=== PATIENT | female | born 1985 | race Caucasian/White ===

== ENCOUNTER 2016-06-14 19:14 | Emergency (ER) | payer OTHER ==
--- NOTE | 2016-06-14 20:30 | ED ORDER SUMMARY ---
..... Patient: LEAH TILLEY OrderSheet [facility] VisitID: [id number] [address] [place] [address] 30y, F Registration Date/Time: 06/14/2016 ORDER SHEET Weight: 68.0 kg (stated) Allergies: Amoxicillin, Clindamycin GENERAL ORDERS: Urine Drug Screen Urgent (20:03 06/14/2016 Quan Benitez) (Ack 20:13 IJurca ER Tech1) (Sent 20:13 IJurca ER Tech1) (20:23 Erwin R.N.) MEDICATION ORDERS: Vistaril PO 100 mg (NOW) (19:34 06/14/2016 Quan RoyACarlito-Ashley) (19:48 Benson R.N.) IV FLUIDS: ORDER SHEET NOTES: [Electronically signed by Katerin Pagan R.N. (20:42 06/14/2016)] [Electronically signed by Guerline Crandall P.A.-C (21:07 06/14/2016)] [Electronically locked/signed by Katerin Pagan R.N. (20:42 06/14/2016)]
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
--- NOTE | 2016-06-14 20:30 | ED ORDER SUMMARY ---
..... Patient: LEAH TILLEY OrderSheet [facility] VisitID: [id number] [address] [place] [address] 30y, F Registration Date/Time: 06/14/2016 ORDER SHEET Weight: 68.0 kg (stated) Allergies: Amoxicillin, Clindamycin GENERAL ORDERS: Urine Drug Screen Urgent (20:03 06/14/2016 Quan Benitez) (Ack 20:13 IJurca ER Tech1) (Sent 20:13 IJurca ER Tech1) (20:23 Erwin R.N.) MEDICATION ORDERS: Vistaril PO 100 mg (NOW) (19:34 06/14/2016 Quan RoyACarlito-Ashley) (19:48 Benson R.N.) IV FLUIDS: ORDER SHEET NOTES: [Electronically signed by Katerin Pagan R.N. (20:42 06/14/2016)] [Electronically signed by Guerline Crandall P.A.-C (21:07 06/14/2016)] [Electronically locked/signed by Katerin Pagan R.N. (20:42 06/14/2016)]
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
--- NOTE | 2016-06-14 21:08 | ED MAR SUMMARY ---
..... Medication Administration Record [facility] [address] [place] [address] Patient: LEAH TILLEY Visit ID: [id number] 30y, F Weight: 68.0 kg Height/Length: 64 in BMI: 25.8 ALLERGIES: Amoxicillin, Clindamycin Given 19:38 06/14/2016 Katerin Pagan R.N. Medication Administered: VISTARIL [PO] (HYDROXYZINE PAMOATE), Dose: 100 mg PO. Medication Ordered: Vistaril PO 100 mg (NOW).
--- NOTE | 2016-06-14 21:08 | ED MED RECONCILIATION SUMMARY ---
Patient: LEAH TILLEY Medication Reconciliation Report [facility] VisitID: [id number] [address] [place] [address] 30y, F Registration Date/Time: 06/14/2016 Weight: 68.0 kg Height/Length: 64 in. BMI: 25.8 ALLERGIES: Amoxicillin, Clindamycin The patient's Home Medications are listed below: THE FOLLOWING MEDICATIONS NEED TO BE RECONCILED: Albuterol Sulfate Inhalation Albuterol Sulfate Inhalation Albuterol Sulfate Inhalation Albuterol Sulfate Inhalation The source(s) of the original Home Medication information: patient The following Medications were given to the patient in the Emergency Department: Vistaril [PO] PO 100 mg, administered: 06/14/2016 7:38:00 PM The following Medications were prescribed to the patient: Vistaril 50 mg: Take 1 orally every 6 hours as needed for anxiety. Dispense twenty (20). No refills. Substitution is permissible. -- Guerline Crandall, PCarlitoARodolfoC
--- NOTE | 2016-06-14 21:08 | ED MAR SUMMARY ---
..... Medication Administration Record [facility] [address] [place] [address] Patient: LEAH TILLEY Visit ID: [id number] 30y, F Weight: 68.0 kg Height/Length: 64 in BMI: 25.8 ALLERGIES: Amoxicillin, Clindamycin Given 19:38 06/14/2016 Katerin Pagan R.N. Medication Administered: VISTARIL [PO] (HYDROXYZINE PAMOATE), Dose: 100 mg PO. Medication Ordered: Vistaril PO 100 mg (NOW).
--- NOTE | 2016-06-14 21:08 | ED DISCHARGE INSTRUCTIONS ---
Patient: LEAH TILLEY General Instructions [facility] VisitID: [id number] [address] [place] [address] 30y, F Registration Date/Time: 06/14/2016 Anxiety reaction. INSTRUCTIONS Stay with responsible adult family member (or other responsible adult). Rest. Do not smoke. No alcohol. Prescription Medications: Vistaril 50 mg: Take 1 orally every 6 hours as needed for anxiety. Dispense twenty (20). No refills. Substitution is permissible. Follow-up: Follow up with your doctor in three days. ADDITIONAL INFORMATION Panic Attack A panic attack is an extreme fear reaction that comes on for no apparent reason. Symptoms may include pounding or racing heartbeat, shortness of breath, dizziness, weakness and sweating. There is usually a fear that something terrible will happen or that you may . The attack may last a few minutes up to a few hours. Between attacks things will seem quite normal. This condition has a psychological cause and can be treated with the help of a therapist or psychiatrist. Medication is often used and can be very helpful for this problem. Home Care: Try to identify the sources of stress in your life. It may not be obvious! These may include: Daily hassles of life which pile up (traffic jams, missed appointments, car troubles, etc.). Major life changes, both good (new baby, job promotion) and bad (loss of job, loss of loved one). Overload: feeling that you have too many responsibilities and can't take care of everything at once. Helplessness: feeling like your problems are too much for you to handle. Notice how your body reacts to stress. Learn to listen to your body signals so that you can take action before the stress becomes severe. When possible, AVOID or REDUCE THE CAUSE OF STRESS. Avoid hassles, limit the amount of change that is happening in your life at one time or take a break when you feel overloaded. Unfortunately, many stressful situations cannot be avoided. Therefore, it is necessary to LEARN HOW TO MANAGE STRESS better. There are many proven methods that work and will reduce your anxiety. These include simple things like exercise, good nutrition and adequate rest. Also, there are certain techniques that are helpful: relaxation and breathing exercises, visualization, biofeedback, meditation or simply taking some time-out to clear your mind. For more information about this, consult your doctor or go to a local bookstore and review the many books and tapes available on this subject. Follow Up with your doctor or a therapist as advised. Get Prompt Medical Attention if any of the following occur: Worsening of your symptoms to the point of feeling [id number] A change in the type of pain: if it feels different, becomes more severe, lasts longer, or begins to spread into your shoulder, arm, neck, jaw or back Shortness of breath or increased pain with breathing Increasing feeling of weakness or dizziness Fainting Cough with dark colored sputum (phlegm) or blood Fever of 100.4F (38C) or higher, or as directed by your healthcare provider Swelling, pain or redness in one leg Hyperventilation Syndrome Hyperventilation Syndrome is a condition in which you lose control of your breathing. You may find yourself breathing too fast and/or too deep. This can be triggered by pain, anxiety and emotional stress. If hyperventilation continues for more than a few minutes, it can lead to a number of frightening symptoms, such as: Numbness and tingling of the hands, feet and face Clenching of the fingers or toes Dizziness Feeling like you cannot get enough air Chest pains Fainting or feeling like you are going to faint Once these symptoms begin, it is often hard to stop them because they lead to a cycle of more anxiety and more hyperventilation. It is important to understand that this is not a life-threatening condition and it will pass once you are able to relax. Relaxation and stress management methods can be learned and practiced in advance. These can help in the event of a future attack. Home Care: 1) Rest today until feeling back to normal. 2) If symptoms return: Sit or lie down. Remember that what is happening to you is temporary and will pass. Use the relaxation methods you have learned. It is no longer recommended to breathe into a paper bag. Follow Up with your doctor or as directed by our staff if symptoms recur. Get Prompt Medical Attention if any of the following occur: Increasing shortness of breath Fever of 100.0 F (38 C) or higher, or as directed by your healthcare provider Coughing up blood Chest pain that is made worse with each breath Redness, pain or swelling of the leg Ringing in your ears, Severe headache Weakness or fainting You have been given the following additional information: Panic Attack Hyperventilation Syndrome Stay with responsible adult family member (or other responsible adult). Rest. (Electronically signed by Guerline Crandall P.A.-C 06/14/2016 21:07)
--- NOTE | 2016-06-14 21:08 | ED MED RECONCILIATION SUMMARY ---
Patient: LEAH TILLEY Medication Reconciliation Report [facility] VisitID: [id number] [address] [place] [address] 30y, F Registration Date/Time: 06/14/2016 Weight: 68.0 kg Height/Length: 64 in. BMI: 25.8 ALLERGIES: Amoxicillin, Clindamycin The patient's Home Medications are listed below: THE FOLLOWING MEDICATIONS NEED TO BE RECONCILED: Albuterol Sulfate Inhalation Albuterol Sulfate Inhalation Albuterol Sulfate Inhalation Albuterol Sulfate Inhalation The source(s) of the original Home Medication information: patient The following Medications were given to the patient in the Emergency Department: Vistaril [PO] PO 100 mg, administered: 06/14/2016 7:38:00 PM The following Medications were prescribed to the patient: Vistaril 50 mg: Take 1 orally every 6 hours as needed for anxiety. Dispense twenty (20). No refills. Substitution is permissible. -- Guerline Crandall, PCarlitoARodolfoC
== END 2016-06-14 20:35 | disposition home or self-care (01) ==
LOC: ED SRH 19:14
DX: F41.1 Generalized anxiety disorder (principal); F17.200 Nicotine dependence, unspecified, uncomplicated; J45.909 Unspecified asthma, uncomplicated; Z88.1 Allergy status to other antibiotic agents; Z88.0 Allergy status to penicillin
CPT/HCPCS: 92760; 92761; 92762; 92763; 92764; 92765; 92766; 92767

== ENCOUNTER 2016-06-15 18:45 | Emergency (ER) | payer OTHER ==
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
--- NOTE | 2016-06-15 20:45 | ED ORDER SUMMARY ---
..... Patient: LEAH TILLEY OrderSheet [facility] VisitID: [id number] [address] [place] [address] 30y, F Registration Date/Time: 06/15/2016 ORDER SHEET Weight: 68 kg Allergies: Amoxicillin, Clindamycin GENERAL ORDERS: Breathalyzer (19:04 06/15/2016 Quan Benitez) (19:10 LMuller) MEDICATION ORDERS: IV FLUIDS: ORDER SHEET NOTES: [Electronically signed by Fariha Goode (20:50 06/15/2016)] [Electronically signed by Guerline Crandall P.A.-C (21:12 06/15/2016)] [Electronically locked/signed by Fariha Goode (20:50 06/15/2016)]
--- NOTE | 2016-06-15 20:45 | ED ORDER SUMMARY ---
..... Patient: LEAH TILLEY OrderSheet [facility] VisitID: [id number] [address] [place] [address] 30y, F Registration Date/Time: 06/15/2016 ORDER SHEET Weight: 68 kg Allergies: Amoxicillin, Clindamycin GENERAL ORDERS: Breathalyzer (19:04 06/15/2016 Quan Benitez) (19:10 LMuller) MEDICATION ORDERS: IV FLUIDS: ORDER SHEET NOTES: [Electronically signed by Fariha Goode (20:50 06/15/2016)] [Electronically signed by Guerline Crandall P.A.-C (21:12 06/15/2016)] [Electronically locked/signed by Fariha Goode (20:50 06/15/2016)]
--- NOTE | 2016-06-15 21:12 | ED DISCHARGE INSTRUCTIONS ---
Patient: LEAH TILLEY General Instructions [facility] VisitID: [id number] [address] [place] [address] 30y, F Registration Date/Time: 06/15/2016 Mild major depressive disorder. Panic attack Paranoid. INSTRUCTIONS ([address] [place] [address] [facility]). Follow-up: Follow up with your doctor. Call for the next available appointment. ADDITIONAL INFORMATION Panic Attack A panic attack is an extreme fear reaction that comes on for no apparent reason. Symptoms may include pounding or racing heartbeat, shortness of breath, dizziness, weakness and sweating. There is usually a fear that something terrible will happen or that you may . The attack may last a few minutes up to a few hours. Between attacks things will seem quite normal. This condition has a psychological cause and can be treated with the help of a therapist or psychiatrist. Medication is often used and can be very helpful for this problem. Home Care: Try to identify the sources of stress in your life. It may not be obvious! These may include: Daily hassles of life which pile up (traffic jams, missed appointments, car troubles, etc.). Major life changes, both good (new baby, job promotion) and bad (loss of job, loss of loved one). Overload: feeling that you have too many responsibilities and can't take care of everything at once. Helplessness: feeling like your problems are too much for you to handle. Notice how your body reacts to stress. Learn to listen to your body signals so that you can take action before the stress becomes severe. When possible, AVOID or REDUCE THE CAUSE OF STRESS. Avoid hassles, limit the amount of change that is happening in your life at one time or take a break when you feel overloaded. Unfortunately, many stressful situations cannot be avoided. Therefore, it is necessary to LEARN HOW TO MANAGE STRESS better. There are many proven methods that work and will reduce your anxiety. These include simple things like exercise, good nutrition and adequate rest. Also, there are certain techniques that are helpful: relaxation and breathing exercises, visualization, biofeedback, meditation or simply taking some time-out to clear your mind. For more information about this, consult your doctor or go to a local bookstore and review the many books and tapes available on this subject. Follow Up with your doctor or a therapist as advised. Get Prompt Medical Attention if any of the following occur: Worsening of your symptoms to the point of feeling [id number] A change in the type of pain: if it feels different, becomes more severe, lasts longer, or begins to spread into your shoulder, arm, neck, jaw or back Shortness of breath or increased pain with breathing Increasing feeling of weakness or dizziness Fainting Cough with dark colored sputum (phlegm) or blood Fever of 100.4F (38C) or higher, or as directed by your healthcare provider Swelling, pain or redness in one leg Hyperventilation Syndrome Hyperventilation Syndrome is a condition in which you lose control of your breathing. You may find yourself breathing too fast and/or too deep. This can be triggered by pain, anxiety and emotional stress. If hyperventilation continues for more than a few minutes, it can lead to a number of frightening symptoms, such as: Numbness and tingling of the hands, feet and face Clenching of the fingers or toes Dizziness Feeling like you cannot get enough air Chest pains Fainting or feeling like you are going to faint Once these symptoms begin, it is often hard to stop them because they lead to a cycle of more anxiety and more hyperventilation. It is important to understand that this is not a life-threatening condition and it will pass once you are able to relax. Relaxation and stress management methods can be learned and practiced in advance. These can help in the event of a future attack. Home Care: 1) Rest today until feeling back to normal. 2) If symptoms return: Sit or lie down. Remember that what is happening to you is temporary and will pass. Use the relaxation methods you have learned. It is no longer recommended to breathe into a paper bag. Follow Up with your doctor or as directed by our staff if symptoms recur. Get Prompt Medical Attention if any of the following occur: Increasing shortness of breath Fever of 100.0 F (38 C) or higher, or as directed by your healthcare provider Coughing up blood Chest pain that is made worse with each breath Redness, pain or swelling of the leg Ringing in your ears, Severe headache Weakness or fainting You have been given the following additional information: Panic Attack Hyperventilation Syndrome (Electronically signed by Guerline Crandall P.A.-C 06/15/2016 21:12)
--- NOTE | 2016-06-15 21:12 | ED DISCHARGE INSTRUCTIONS ---
Patient: LEAH TILLEY General Instructions [facility] VisitID: [id number] [address] [place] [address] 30y, F Registration Date/Time: 06/15/2016 Mild major depressive disorder. Panic attack Paranoid. INSTRUCTIONS ([address] [place] [address] [facility]). Follow-up: Follow up with your doctor. Call for the next available appointment. ADDITIONAL INFORMATION Panic Attack A panic attack is an extreme fear reaction that comes on for no apparent reason. Symptoms may include pounding or racing heartbeat, shortness of breath, dizziness, weakness and sweating. There is usually a fear that something terrible will happen or that you may . The attack may last a few minutes up to a few hours. Between attacks things will seem quite normal. This condition has a psychological cause and can be treated with the help of a therapist or psychiatrist. Medication is often used and can be very helpful for this problem. Home Care: Try to identify the sources of stress in your life. It may not be obvious! These may include: Daily hassles of life which pile up (traffic jams, missed appointments, car troubles, etc.). Major life changes, both good (new baby, job promotion) and bad (loss of job, loss of loved one). Overload: feeling that you have too many responsibilities and can't take care of everything at once. Helplessness: feeling like your problems are too much for you to handle. Notice how your body reacts to stress. Learn to listen to your body signals so that you can take action before the stress becomes severe. When possible, AVOID or REDUCE THE CAUSE OF STRESS. Avoid hassles, limit the amount of change that is happening in your life at one time or take a break when you feel overloaded. Unfortunately, many stressful situations cannot be avoided. Therefore, it is necessary to LEARN HOW TO MANAGE STRESS better. There are many proven methods that work and will reduce your anxiety. These include simple things like exercise, good nutrition and adequate rest. Also, there are certain techniques that are helpful: relaxation and breathing exercises, visualization, biofeedback, meditation or simply taking some time-out to clear your mind. For more information about this, consult your doctor or go to a local bookstore and review the many books and tapes available on this subject. Follow Up with your doctor or a therapist as advised. Get Prompt Medical Attention if any of the following occur: Worsening of your symptoms to the point of feeling [id number] A change in the type of pain: if it feels different, becomes more severe, lasts longer, or begins to spread into your shoulder, arm, neck, jaw or back Shortness of breath or increased pain with breathing Increasing feeling of weakness or dizziness Fainting Cough with dark colored sputum (phlegm) or blood Fever of 100.4F (38C) or higher, or as directed by your healthcare provider Swelling, pain or redness in one leg Hyperventilation Syndrome Hyperventilation Syndrome is a condition in which you lose control of your breathing. You may find yourself breathing too fast and/or too deep. This can be triggered by pain, anxiety and emotional stress. If hyperventilation continues for more than a few minutes, it can lead to a number of frightening symptoms, such as: Numbness and tingling of the hands, feet and face Clenching of the fingers or toes Dizziness Feeling like you cannot get enough air Chest pains Fainting or feeling like you are going to faint Once these symptoms begin, it is often hard to stop them because they lead to a cycle of more anxiety and more hyperventilation. It is important to understand that this is not a life-threatening condition and it will pass once you are able to relax. Relaxation and stress management methods can be learned and practiced in advance. These can help in the event of a future attack. Home Care: 1) Rest today until feeling back to normal. 2) If symptoms return: Sit or lie down. Remember that what is happening to you is temporary and will pass. Use the relaxation methods you have learned. It is no longer recommended to breathe into a paper bag. Follow Up with your doctor or as directed by our staff if symptoms recur. Get Prompt Medical Attention if any of the following occur: Increasing shortness of breath Fever of 100.0 F (38 C) or higher, or as directed by your healthcare provider Coughing up blood Chest pain that is made worse with each breath Redness, pain or swelling of the leg Ringing in your ears, Severe headache Weakness or fainting You have been given the following additional information: Panic Attack Hyperventilation Syndrome (Electronically signed by Guerline Crandall P.A.-C 06/15/2016 21:12)
--- NOTE | 2016-06-15 21:12 | ED MAR SUMMARY ---
..... Medication Administration Record [facility] [address] [id number] Patient: LEAH TILLEY Visit ID: [id number] 30y, F Weight: 68.0 kg Height/Length: 62 in BMI: 27.4 ALLERGIES: Amoxicillin, Clindamycin
--- NOTE | 2016-06-15 21:12 | ED MAR SUMMARY ---
..... Medication Administration Record [facility] [address] [place], [place] [id number] Patient: LEAH TILLEY Visit ID: [id number] 30y, F Weight: 68.0 kg Height/Length: 62 in BMI: 27.4 ALLERGIES: Amoxicillin, Clindamycin
--- NOTE | 2016-06-15 21:12 | ED MED RECONCILIATION SUMMARY ---
Patient: LEAH TILLEY Medication Reconciliation Report [facility] VisitID: [id number] [address] [place] [place] [address] 30y, F Registration Date/Time: 06/15/2016 Weight: 68 kg Height/Length: 62 in. BMI: 27.4 ALLERGIES: Amoxicillin, Clindamycin The patient's Home Medications are listed below: THE FOLLOWING MEDICATIONS NEED TO BE RECONCILED: Albuterol Sulfate Inhalation The source(s) of the original Home Medication information: Not obtained. The following Medications were given to the patient in the Emergency Department: None. The following Medications were prescribed to the patient: None.
--- NOTE | 2016-06-15 21:12 | ED MED RECONCILIATION SUMMARY ---
Patient: LEAH TILLEY Medication Reconciliation Report [facility] VisitID: [id number] [address] [place] [address] 30y, F Registration Date/Time: 06/15/2016 Weight: 68 kg Height/Length: 62 in. BMI: 27.4 ALLERGIES: Amoxicillin, Clindamycin The patient's Home Medications are listed below: THE FOLLOWING MEDICATIONS NEED TO BE RECONCILED: Albuterol Sulfate Inhalation The source(s) of the original Home Medication information: Not obtained. The following Medications were given to the patient in the Emergency Department: None. The following Medications were prescribed to the patient: None.
== END 2016-06-15 20:50 | disposition home or self-care (01) ==
LOC: ED SRH 18:45
DX: F22 Delusional disorders (principal); F32.9 Major depressive disorder, single episode, unspecified; F41.1 Generalized anxiety disorder; Z88.1 Allergy status to other antibiotic agents

== ENCOUNTER 2016-07-12 15:18 | Emergency (ER) | payer OTHER ==
--- NOTE | 2016-07-12 15:24 | ED CLINICAL REPORT ---
Clinical Report - Physicians/Mid Levels [facility] [address] [place] [address] 07/12/2016 15:18 Patient: LEAH TILLEY Time Seen: 1523. Arrived- Police present. Historian- patient and police. HISTORY OF PRESENT ILLNESS Chief Complaint: Clear to book, has been drinking. This started today and is still present. At its maximum, severity described as moderate. When seen in the E.D., severity described as moderate. Modifying factors- (Pt herself has no complaints, other than that she doesn't like the feeling of the handcuffs.). Not worsened by anything. Not relieved by anything. No current or associated symptoms. Similar symptoms previously: Recent medical care: Not recently seen/assessed. REVIEW OF SYSTEMS No fever, sore throat, sinus drainage, nasal congestion or cough. No difficulty breathing, chest pain, abdominal pain, nausea or vomiting. No diarrhea, black stools, bloody stools, chills or difficulty with urination. No skin rash, back pain, calf pain, headache or blackouts. No double vision. No difficulty with ambulation. All systems otherwise negative, except as recorded above. PAST HISTORY Problems: Panic Attack. Suicidal Ideation. Depression. Back Pain. Substance Abuse. PTSD. Fibromyalgia. Tetanus Status. Dental Caries. Anxiety Reaction. Bipolar Disorder. Hyperventilation. Immunizations. LNMP - Last Normal Menstrual Period. Asthma. Additional Surgeries: Adenoidectomy. Tonsillectomy. Medications: Albuterol Sulfate Inhalation. Allergies: Amoxicillin. Clindamycin. SOCIAL HISTORY Smoker- current status unknown. Alcohol use. ADDITIONAL NOTES The nursing notes have been reviewed. PHYSICAL EXAM Vital Signs: 07/12/2016 17:20 BP: 163/120. HR: 104. RR: 20. O2 saturation: 100%. Temp: 96.1 F. Pain level now: 5/10. Have been reviewed. Appearance: Alert. No acute distress. (Pt is belligerent and yelling obscenities.). Eyes: Pupils equal, round and reactive to light. Eyes normal inspection. ENT: Nose normal. Neck: Normal inspection. CVS: Normal heart rate and rhythm. Heart sounds normal. Pulses normal. Respiratory: No respiratory distress. Breath sounds normal. Abdomen: No visible injury. Soft and nontender. Back: Normal inspection. Skin: Skin warm and dry. Normal skin color. No rash. Normal skin turgor. Extremities: Extremities exhibit normal ROM. No lower extremity edema. Neuro: No motor deficit. No sensory deficit. (Pt is alert and verbal.). LABS, X-RAYS, AND EKG Pulse Oximetry: 07/12/2016 17:20 O2 saturation: 100%. (FIO2 - room air). Interpretation: normal. PROGRESS AND PROCEDURES Course of Care: No acute or emergent issues were identified. Pt was cleared for booking. Patient counseled in person regarding the patient's stable condition, diagnosis and need for follow-up. Concerns were addressed. Old medical records reviewed. Disposition: Discharged. Condition: stable. CLINICAL IMPRESSION Normal exam while in the ED. INSTRUCTIONS (CLEAR TO BOOK.). Warnings: GENERAL WARNINGS: Return or contact your physician immediately if your condition worsens or changes unexpectedly, if not improving as expected, or if other problems arise. Follow-up: Follow up with your doctor as needed. Understanding of the discharge instructions verbalized by patient. (Electronically signed by Karlie Gallagher MD 07/14/2016 17:31)
--- NOTE | 2016-07-12 15:24 | ED CLINICAL REPORT ---
Clinical Report - Physicians/Mid Levels [facility] [address] [place] [address] 07/12/2016 15:18 Patient: LEAH TILLEY Time Seen: 1523. Arrived- Police present. Historian- patient and police. HISTORY OF PRESENT ILLNESS Chief Complaint: Clear to book, has been drinking. This started today and is still present. At its maximum, severity described as moderate. When seen in the E.D., severity described as moderate. Modifying factors- (Pt herself has no complaints, other than that she doesn't like the feeling of the handcuffs.). Not worsened by anything. Not relieved by anything. No current or associated symptoms. Similar symptoms previously: Recent medical care: Not recently seen/assessed. REVIEW OF SYSTEMS No fever, sore throat, sinus drainage, nasal congestion or cough. No difficulty breathing, chest pain, abdominal pain, nausea or vomiting. No diarrhea, black stools, bloody stools, chills or difficulty with urination. No skin rash, back pain, calf pain, headache or blackouts. No double vision. No difficulty with ambulation. All systems otherwise negative, except as recorded above. PAST HISTORY Problems: Panic Attack. Suicidal Ideation. Depression. Back Pain. Substance Abuse. PTSD. Fibromyalgia. Tetanus Status. Dental Caries. Anxiety Reaction. Bipolar Disorder. Hyperventilation. Immunizations. LNMP - Last Normal Menstrual Period. Asthma. Additional Surgeries: Adenoidectomy. Tonsillectomy. Medications: Albuterol Sulfate Inhalation. Allergies: Amoxicillin. Clindamycin. SOCIAL HISTORY Smoker- current status unknown. Alcohol use. ADDITIONAL NOTES The nursing notes have been reviewed. PHYSICAL EXAM Vital Signs: 07/12/2016 17:20 BP: 163/120. HR: 104. RR: 20. O2 saturation: 100%. Temp: 96.1 F. Pain level now: 5/10. Have been reviewed. Appearance: Alert. No acute distress. (Pt is belligerent and yelling obscenities.). Eyes: Pupils equal, round and reactive to light. Eyes normal inspection. ENT: Nose normal. Neck: Normal inspection. CVS: Normal heart rate and rhythm. Heart sounds normal. Pulses normal. Respiratory: No respiratory distress. Breath sounds normal. Abdomen: No visible injury. Soft and nontender. Back: Normal inspection. Skin: Skin warm and dry. Normal skin color. No rash. Normal skin turgor. Extremities: Extremities exhibit normal ROM. No lower extremity edema. Neuro: No motor deficit. No sensory deficit. (Pt is alert and verbal.). LABS, X-RAYS, AND EKG Pulse Oximetry: 07/12/2016 17:20 O2 saturation: 100%. (FIO2 - room air). Interpretation: normal. PROGRESS AND PROCEDURES Course of Care: No acute or emergent issues were identified. Pt was cleared for booking. Patient counseled in person regarding the patient's stable condition, diagnosis and need for follow-up. Concerns were addressed. Old medical records reviewed. Disposition: Discharged. Condition: stable. CLINICAL IMPRESSION Normal exam while in the ED. INSTRUCTIONS (CLEAR TO BOOK.). Warnings: GENERAL WARNINGS: Return or contact your physician immediately if your condition worsens or changes unexpectedly, if not improving as expected, or if other problems arise. Follow-up: Follow up with your doctor as needed. Understanding of the discharge instructions verbalized by patient. (Electronically signed by Karlie Gallagher MD 07/14/2016 17:31)
--- NOTE | 2016-07-14 17:31 | ED DISCHARGE INSTRUCTIONS ---
Patient: LEAH TILLEY General Instructions [facility] VisitID: [id number] [address] [place] [address] 30y, F Registration Date/Time: 07/12/2016 Normal exam while in the ED. INSTRUCTIONS (CLEAR TO BOOK.). Warnings: GENERAL WARNINGS: Return or contact your physician immediately if your condition worsens or changes unexpectedly, if not improving as expected, or if other problems arise. Follow-up: Follow up with your doctor as needed. Understanding of the discharge instructions verbalized by patient. (Electronically signed by Karlie Gallagher MD 07/14/2016 17:31)
--- NOTE | 2016-07-14 17:31 | ED MED RECONCILIATION SUMMARY ---
Patient: LEAH TILLEY Medication Reconciliation Report [facility] VisitID: [id number] [address] [place] [address] 30y, F Registration Date/Time: 07/12/2016 Weight: 68 kg Height/Length: 62 in. BMI: 27.4 ALLERGIES: Amoxicillin, Clindamycin The patient's Home Medications are listed below: THE FOLLOWING MEDICATIONS NEED TO BE RECONCILED: Albuterol Sulfate Inhalation The source(s) of the original Home Medication information: Not obtained. The following Medications were given to the patient in the Emergency Department: None. The following Medications were prescribed to the patient: None.
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
--- NOTE | 2016-07-14 17:31 | ED MAR SUMMARY ---
..... Medication Administration Record [facility] [address], [place] [id number] Patient: LEAH TILLEY Visit ID: [id number] 30y, F Weight: 68.0 kg Height/Length: 62 in BMI: 27.4 ALLERGIES: Amoxicillin, Clindamycin
--- NOTE | 2016-07-14 17:31 | ED MAR SUMMARY ---
..... Medication Administration Record [facility] [address] [place], [place] [id number] Patient: LEAH TILLEY Visit ID: [id number] 30y, F Weight: 68.0 kg Height/Length: 62 in BMI: 27.4 ALLERGIES: Amoxicillin, Clindamycin
--- NOTE | 2016-07-14 17:31 | ED MED RECONCILIATION SUMMARY ---
Patient: LEAH TILLEY Medication Reconciliation Report [facility] VisitID: [id number] [address] [place] [address] 30y, F Registration Date/Time: 07/12/2016 Weight: 68 kg Height/Length: 62 in. BMI: 27.4 ALLERGIES: Amoxicillin, Clindamycin The patient's Home Medications are listed below: THE FOLLOWING MEDICATIONS NEED TO BE RECONCILED: Albuterol Sulfate Inhalation The source(s) of the original Home Medication information: Not obtained. The following Medications were given to the patient in the Emergency Department: None. The following Medications were prescribed to the patient: None.
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
--- NOTE | 2016-07-14 17:31 | ED DISCHARGE INSTRUCTIONS ---
Patient: LEAH TILLEY General Instructions [facility] VisitID: [id number] [address] [place] [address] 30y, F Registration Date/Time: 07/12/2016 Normal exam while in the ED. INSTRUCTIONS (CLEAR TO BOOK.). Warnings: GENERAL WARNINGS: Return or contact your physician immediately if your condition worsens or changes unexpectedly, if not improving as expected, or if other problems arise. Follow-up: Follow up with your doctor as needed. Understanding of the discharge instructions verbalized by patient. (Electronically signed by Karlie Gallagher MD 07/14/2016 17:31)
== END 2016-07-12 15:33 ==
LOC: ED SRH 15:18
DX: Z02.89 Encounter for other administrative examinations (principal); J45.909 Unspecified asthma, uncomplicated; F31.9 Bipolar disorder, unspecified; Z79.51 Long term (current) use of inhaled steroids; Z88.1 Allergy status to other antibiotic agents

== ENCOUNTER 2016-09-19 14:43 | Outpatient (CLI) | payer OTHER ==
--- NOTE | 2016-09-19 15:44 | DIAGNOSTIC IMAGING REPORT ---
PROCEDURE: XR WRIST MIN 3 VIEWS - RIGHT INDICATION: WRIST PAIN TECHNIQUE: Four views of the right wrist. COMPARISON: None. FINDINGS: Normal mineralization. No fractures. Normal osseous alignment. No suspicious soft-tissue calcification or radiodense foreign bodies. IMPRESSION: 1. Intact right wrist.
== END 2016-09-19 23:00 ==
LOC: XR SRH 14:43
DX: M25.531 Pain in right wrist (principal)

== ENCOUNTER 2016-11-15 23:43 | Emergency (ER) | payer OTHER ==
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
--- NOTE | 2016-11-16 01:17 | ED MED RECONCILIATION SUMMARY ---
Patient: LEAH TILLEY Medication Reconciliation Report [facility] VisitID: [id number] [address] [place] [place] [address] 30y, F Registration Date/Time: 11/15/2016 Weight: 72.5 kg Height/Length: 63 in. BMI: 28.3 ALLERGIES: Amoxicillin, Clindamycin The patient's Home Medications are listed below: THE FOLLOWING MEDICATIONS NEED TO BE RECONCILED: Albuterol Sulfate Inhalation The source(s) of the original Home Medication information: patient The following Medications were given to the patient in the Emergency Department: None. The following Medications were prescribed to the patient: None.
--- NOTE | 2016-11-16 01:17 | ED MAR SUMMARY ---
..... Medication Administration Record [facility] [address] [place], [place] [id number] Patient: LEAH TILLEY Visit ID: [id number] 30y, F Weight: 72.5 kg Height/Length: 63 in BMI: 28.3 ALLERGIES: Amoxicillin, Clindamycin
--- NOTE | 2016-11-16 01:17 | ED MAR SUMMARY ---
..... Medication Administration Record [facility] [address] [place], [place] [id number] Patient: LEAH TILLEY Visit ID: [id number] 30y, F Weight: 72.5 kg Height/Length: 63 in BMI: 28.3 ALLERGIES: Amoxicillin, Clindamycin
--- NOTE | 2016-11-16 01:17 | ED MED RECONCILIATION SUMMARY ---
Patient: LEAH TILLEY Medication Reconciliation Report [facility] VisitID: [id number] [address] [place] [place] [address] 30y, F Registration Date/Time: 11/15/2016 Weight: 72.5 kg Height/Length: 63 in. BMI: 28.3 ALLERGIES: Amoxicillin, Clindamycin The patient's Home Medications are listed below: THE FOLLOWING MEDICATIONS NEED TO BE RECONCILED: Albuterol Sulfate Inhalation The source(s) of the original Home Medication information: patient The following Medications were given to the patient in the Emergency Department: None. The following Medications were prescribed to the patient: None.
== END 2016-11-16 01:10 | disposition left against medical advice (07) ==
LOC: ED SRH 23:43
DX: Z53.21 Procedure and treatment not carried out due to patient leaving prior to being seen by health care provider (principal)